=== PATIENT | female | born 1980 | race Caucasian/White ===

== ENCOUNTER 2016-10-12 23:08 | Emergency (ER) | payer OTHER ==
[~2016-10-12] VITALS: Ht 160 cm; Wt 82.2 kg
[2016-10-12 23:17] VITALS: TEMP 37.1; Ht 160 cm; Wt 82.2 kg
[2016-10-12] MEDS ORDERED: SODIUM CHLORIDE 0.9% 1000ML 1,000 ML IV STA (23:28)
[2016-10-12] MEDS ORDERED: ONDANSETRON INJ 2 MG/ML 2 ML VIAL IV STA (23:28)
[2016-10-12] MEDS ORDERED: SODIUM CHLORIDE 0.9% 1000ML 2,000 ML IV STA (23:28)
[2016-10-12] MEDS ORDERED: DICYCLOMINE HCL 10 MG/ML 2 ML AMP IM ONE (23:30)
[2016-10-13] LABS: BASO % 0.1 %; BASO ABS # 0.01 K/uL (0-0.2); COMPLETE YES; EOS % 2.5 %; IG% 0.1 %; LYMPH % 7.8 %; MEAN CELL VOLUME 87.6 fL (80-100); MEAN CORPUSCULAR HEMOGLOBIN 30.1 pg (25-34); MEAN CORPUSCULAR HGB CONC 34.4 g/dl (32-36); MEAN PLATELET VOLUME 9.8 fL (7.4-10.4); MONO % 8.7 %; NEUT % 80.8 %; PLATELET COUNT 227 K/uL (130-400); RED BLOOD COUNT 4.91 M/uL (4.2-5.4); WHITE BLOOD COUNT 7.72 K/uL (4.8-10.8)
[2016-10-13 00:19] LABS: PREG INTERNAL NEGATIVE QC NEG CLEAR BACKGROUND; PREG INTERNAL POSITIVE QC POS CONTROL LINE
[2016-10-13 00:25] LABS: CREATININE 0.83 mg/dl (0.60-1.20); POTASSIUM 3.8 mmol/L (3.5-5.1)
[2016-10-13] MEDS ORDERED: METOCLOPRAMIDE HCL INJ 5 MG/ML 2 ML VIAL IV STA (00:37)
[2016-10-13] MEDS ORDERED: FAMOTIDINE IV INJ 20 MG in DEXTROSE 5% 100ML 100 ML IV STA (00:37)
--- NOTE | 2016-10-13 01:53 | EMERGENCY ROOM VISIT NOTE ---
History First contact with patient: 23:19 Chief Complaint: FLU LIKE SX Stated Complaint: FLU History of Present Illness The patient is a 36 year old female who presents to the Emergency Room with complaints of nausea, vomiting, diarrhea for the past day. She has had recent antibiotics. No well water. Patient denies any blood or black in the vomit or stool. Patient denies chest pain, dyspnea, fever, chills, back pain, urinary symptoms. She complains of mild diffuse abdominal cramping. No localized pain. Review of Systems See HPI for pertinent positives & negatives. A total of 10 systems reviewed and were otherwise negative. Past Medical/Surgical History None Social History Smoking Status: Never Smoker Smokeless Tobacco Use: No Alcohol Use: none Drug Use: none Marital Status: Housing Status: lives with family Current/Historical Medications No Active Prescriptions or Reported Meds Allergies Coded Allergies: Penicillins (Verified Allergy, Mild, ?, 10/13/16) Physical Exam Vital Signs Date Time Temp Pulse Resp B/P Pulse Ox O2 Delivery O2 Flow Rate FiO2 10/13/16 00:55 79 18 117/67 98 Room Air 10/12/16 23:17 37.1 111 20 129/71 96 Room Air Physical Exam VITALS: Vitals are noted on the nurse's note and reviewed by myself. Vital signs mildly tachycardic. GENERAL: Pleasant female, in no acute distress, nondiaphoretic, well-developed well-nourished. SKIN: The skin was without rashes, erythema, edema, or bruising. There is no tenting of the skin. Capillary reflex less than 2 seconds. HEAD: Normocephalic atraumatic. EARS: External auditory canals clear, tympanic membranes pearly haskins without erythema or effusion bilaterally. EYES: Pupils equal round and reactive to light and accommodation. Conjunctivae without injection, sclerae without icterus. Extraocular movements intact. NOSE: Patent, turbinates without inflammation or discharge MOUTH: Mucous membranes mildly dry. Pharynx without erythema or exudate. Uvula midline. Airway patent. Tongue does not deviate. NECK: Supple without nuchal rigidity. No lymphadenopathy. No thyromegaly. Cervical spine is nontender. No JVD. HEART: Regular rate and rhythm without murmurs gallops or rubs. LUNGS: Clear to auscultation bilaterally without wheezes, rales or rhonchi. No dullness to percussion. No retractions or accessory muscle use. ABDOMEN: Positive bowel sounds x 4. Normal tympanic percussion. Soft, nontender, without masses or organomegaly. Singh sign negative. No guarding or rebound tenderness. No CVA tenderness MUSCULOSKELETAL: No muscle atrophy, erythema, or edema noted. NEURO: Patient was alert and oriented to person place and time. Normal sensation to light and sharp touch. No focal neurological deficits. Medical Decision & Procedures Laboratory Results 10/12/16 23:40 Red Blood Count 4.91, Mean Corpuscular Volume 87.6, Mean Corpuscular Hemoglobin 30.1, Mean Corpuscular Hemoglobin Concent 34.4, Mean Platelet Volume 9.8, Neutrophils (%) (Auto) 80.8, Lymphocytes (%) (Auto) 7.8, Monocytes (%) (Auto) 8.7, Eosinophils (%) (Auto) 2.5, Basophils (%) (Auto) 0.1, Neutrophils # (Auto) 6.24, Lymphocytes # (Auto) 0.60, Monocytes # (Auto) 0.67, Eosinophils # (Auto) 0.19, Basophils # (Auto) 0.01 10/12/16 23:40 Test 10/12/16 23:40 White Blood Count 7.72 K/uL (4.8-10.8) Red Blood Count 4.91 M/uL (4.2-5.4) Hemoglobin 14.8 g/dL (12.0-16.0) Hematocrit 43.0 % (37-47) Mean Corpuscular Volume 87.6 fL (80-100) Mean Corpuscular Hemoglobin 30.1 pg (25-34) Mean Corpuscular Hemoglobin Concent 34.4 g/dl (32-36) Platelet Count 227 K/uL (130-400) Mean Platelet Volume 9.8 fL (7.4-10.4) Neutrophils (%) (Auto) 80.8 % Lymphocytes (%) (Auto) 7.8 % Monocytes (%) (Auto) 8.7 % Eosinophils (%) (Auto) 2.5 % Basophils (%) (Auto) 0.1 % Neutrophils # (Auto) 6.24 K/uL (1.4-6.5) Lymphocytes # (Auto) 0.60 K/uL (1.2-3.4) Monocytes # (Auto) 0.67 K/uL (0.11-0.59) Eosinophils # (Auto) 0.19 K/uL (0-0.5) Basophils # (Auto) 0.01 K/uL (0-0.2) RDW Standard Deviation 39.9 fL (36.4-46.3) RDW Coefficient of Variation 12.5 % (11.5-14.5) Immature Granulocyte % (Auto) 0.1 % Immature Granulocyte # (Auto) 0.01 K/uL (0.00-0.02) Anion Gap 10.0 mmol/L (3-11) Est Creatinine Clear Calc Drug Dose 97.0 ml/min Estimated GFR () 106.6 Estimated GFR (Non- 92.0 BUN/Creatinine Ratio 21.0 (10-20) Calcium Level 9.0 mg/dl (8.5-10.1) Human Chorionic Gonadotropin, Qual NEG (NEG) Medications Administered Medications (Trade) Dose Ordered Sig/Thomas Route Start Time Stop Time Status Last Admin Dose Admin Sodium Chloride 2,000 ml @ 999 mls/hr Q2H1M STAT IV 10/12/16 23:28 10/13/16 01:28 DC 10/12/16 23:52 999 MLS/HR Sodium Chloride (Nss 1000ml) 1,000 ml @ 200 mls/hr Q5H STAT IV 10/12/16 23:28 10/13/16 04:27 10/12/16 23:28 200 MLS/HR Ondansetron HCl (Zofran Inj) 4 mg NOW STAT IV 10/12/16 23:28 10/12/16 23:30 DC 10/12/16 23:51 4 MG Dicyclomine HCl (Bentyl Inj) 20 mg NOW ONCE IM 10/12/16 23:30 10/12/16 23:31 DC 10/12/16 23:51 20 MG Metoclopramide HCl 10 mg 10 mg NOW STAT IV 10/13/16 00:37 10/13/16 00:38 DC 10/13/16 01:08 10 MG Famotidine/ Dextrose (Pepcid IV Inj/ D5 100ml) 102 ml @ 200 mls/hr NOW STAT IV 10/13/16 00:37 10/13/16 01:07 DC 10/13/16 01:08 200 MLS/HR ED Course Prior records/ancillary studies reviewed. Triage Nursing notes reviewed. Additional history obtained from the family. The patient's history was concerning for nausea, vomiting, diarrhea, and abdominal pain. Differential diagnosis: Etiologies such as gastroenteritis, food borne illness, infections, appendicitis , diverticulitis, inflammatory bowel disease, obstruction, GI bleed, biliary pathology, as well as others were entertained. Physical examination findings: As above. Abdominal examination revealed no tenderness. Vital signs reviewed and revealed mildly tachycardic from dehydration. ER treatment provided: IV hydration 2 L NSS. Shaista Bautista On reassessment the patient felt better. Patient was tolerating p.o. intake. Diagnostics interpretation by me: The labs revealed no worrisome leukocytosis. Mild hyperglycemia without DKA This appears to be consistent with vomiting and diarrhea. Patient felt much better to be medicated as above. She is no longer vomiting. She was advised to rest, stay well-hydrated, do clear liquid diet today and then progress as tolerated to bland diet tomorrow. She is advised to follow-up family care in a few days or here in the ER sooner for abdominal pain, fevers, worsening signs or symptoms or as needed. Patient did not have an acute abdomen on exam. She was well-appearing. By the evaluation outlined above emergent etiologies such as appendicitis, diverticulitis, obstruction, cardiac sources, mesenteric ischemia, aortic pathology, inflammatory bowel disease, renal colic, PUD, biliary pathology, UTI, as well as others were deemed relatively unlikely. The pt informed about the findings as listed above. All questions were answered and pleased with the treatment. Return instructions were outlined and the patient was discharged in stable condition. Outpatient prescription management: zofran Referral: The patient was referred to their primary care physician for follow-up in 2 to 3 days for a recheck of the current condition. Medical Decision As above Impression Primary Impression: Nausea vomiting and diarrhea Departure Information Dispostion Home / Self-Care Condition GOOD Prescriptions No Active Prescriptions or Reported Meds Referrals No Doctor, Assigned (PCP) Patient Instructions A Signature Page, My [facility] Trumpet Search Additional Instructions DO NOT drive, drink alcohol, operate machinery, or perform dangerous activities today. You were given medications in the ER that can affect your ability to safely function or operate a vehicle. Zofran(odansetron) tablets 4mg: Take one and allow it to dissolve in your mouth every four to six hours as needed for nausea or vomiting. Ibuprofen(Motrin, Advil) may be used for fever or pain. Use 600mg every six hours as needed. Take with food. Avoid using more than 2400mg in a 24 hour period. Do not use 2400mg per day for more than three consecutive days without physician direction. Prolonged inappropriate use can lead to stomach upset or ulcers. (AND/OR) Acetaminophen(Tylenol) may be used for fever or pain. Use 1000mg every six hours as needed. Avoid using more than 3000mg in a 24 hour period. Rest and drink plenty of fluids as tolerated. Slow sips of water or sports drinks are recommended instead of large amounts all at once. Continue current medications. Once your stomach is settled start with a clear liquid diet (jello, soup broth, etc.) and then advance as tolerated. You should avoid full, heavy meals for about 24 hrs from the time your symptoms resolved. Return to the ER for persistent vomiting, fevers, abdominal pain, chest pains, difficulty breathing, black or bloody stools, worsening of your condition, or as needed. Follow up with your primary physician in 2-3 days for a recheck of your current condition.
[2016-10-13] MEDS ORDERED: ONDANSETRON HOME PACK 4MG OD TAB PO ONE (02:00)
[2016-10-13 02:13] VITALS: BP 107/59; PULSE 82; O2SAT 98
== END 2016-10-13 02:14 | disposition home or self-care (01) ==
LOC: C.EDB 23:10
DX: R11.2 Nausea with vomiting, unspecified (principal); R19.7 Diarrhea, unspecified; Z88.0 Allergy status to penicillin

== ENCOUNTER 2016-12-16 19:04 | Emergency (ER) | payer OTHER ==
[~2016-12-16] VITALS: Ht 160 cm; Wt 71.0 kg
[2016-12-16 19:11] VITALS: TEMP 36.8; Ht 160 cm; Wt 71.0 kg
[2016-12-16] MEDS ORDERED: SODIUM CHLORIDE 0.9% 1000ML 1,000 ML IV STA (19:16)
[2016-12-16] MEDS ORDERED: RANITIDINE HCL 150 MG TAB PO STA (19:16)
--- NOTE | 2016-12-16 19:36 | EMERGENCY ROOM VISIT NOTE ---
History Report prepared by Carlyle: Yancy Ford Under the Supervision of: Dr. Viet Parks M.D. 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 The patient was recently prescribed Levaquin for a sinus infection. She took her first dose tonight. One hour after taking the Levaquin she started to develop symptoms of an allergic reaction. She reports swelling of her neck and lips as well as shortness breath. This is the first time that she has ever taken Levaquin. She has never had an allergic reaction like this before. She is allergic to penicillin, but just developed hives with that reaction. The patient was brought to the ED by ambulance. She was given epinephrine, Solu-Medrol, and Benadryl en route and her symptoms have improved. She is still experiencing numbness of her lips and states that her lips and neck still feel swollen. 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 Review of Systems See HPI for pertinent positives & negatives. A total of 10 systems reviewed and were otherwise negative. Past Medical & Surgical Medical Problems: (1) Allergy status to penicillin (2) Irritable bowel syndrome Family History No pertinent history stated. Social History Smoking Status: Never Smoker Alcohol Use: none Drug Use: none Marital Status: Housing Status: lives with family Current/Historical Medications Scheduled Epinephrine (Epipen), 0.3 MG IM UD Ranitidine Hcl (Zantac), 150 MG PO BID Allergies Coded Allergies: Levofloxacin (Unverified Allergy, Severe, "couldn't breathe, itchy,sick in the stomach", 12/16/16) Penicillins (Verified Allergy, Mild, ?, 12/16/16) Physical Exam Vital Signs Date Time Temp Pulse Resp B/P Pulse Ox O2 Delivery O2 Flow Rate FiO2 12/16/16 23:48 97 18 131/83 96 Room Air 3/15/17 23:11 105 12/16/16 22:13 114 18 129/75 100 Room Air 12/16/16 20:27 105 18 98 Room Air 12/16/16 19:26 118 12/16/16 19:11 98 Room Air 12/16/16 19:11 36.8 126 18 150/93 100 Room Air Physical Exam GENERAL: Patient is a healthy-appearing well-nourished 36 year old female. HEAD: Normocephalic atraumatic EYES: Ocular movements intact pupils equal and react to light OROPHARYNX mucous membranes are moist no exudates present no erythema or edema present NECK: Supple no nuchal rigidity, no stridor. CHEST: Good equal expansion LUNGS: Clear and equal to auscultation, no wheezing. CARDIAC: Normal S1 and S2 ABDOMEN: Soft nontender no guarding BACK: No CVA tenderness EXTREMITIES: No pain upon palpation normal muscle strength in all groups no clubbing cyanosis or edema INTEGUMENTARY: No rashes. NEURO: Patient is following commands is answering questions appropriately. Alert and oriented x3 Cranial Nerves 2-12 grossly intact Medical Decision & Procedures Medications Administered Medications (Trade) Dose Ordered Sig/Thomas Route Start Time Stop Time Status Last Admin Dose Admin Sodium Chloride (Nss 1000ml) 1,000 ml @ 999 mls/hr Q1H1M STAT IV 12/16/16 19:16 12/16/16 20:16 DC 12/16/16 19:27 999 MLS/HR Ranitidine HCl (zANTac TAB) 150 mg NOW STAT PO 12/16/16 19:16 12/16/16 19:18 DC 12/16/16 19:27 150 MG Dexamethasone Sodium Phosphate (Decadron Inj) 10 mg NOW ONCE IV 12/16/16 20:30 12/16/16 20:31 DC 12/16/16 20:23 10 MG Diphenhydramine HCl (Benadryl Inj) 25 mg NOW STAT IV 12/16/16 20:16 12/16/16 20:17 DC 12/16/16 20:23 25 MG Racepinephrine (Raccemic Epinephrine 2.25% 0.5ML Neb) 0.5 ml NOW STAT INH 12/16/16 20:18 12/16/16 20:19 DC 12/16/16 20:27 0.5 ML Sodium Chloride (Benzie Nasal Clyde) 2 sprays NOW ONCE NA 12/16/16 23:45 12/16/16 23:46 DC 12/16/16 23:45 2 SPRAYS ED Course 1910: Past medical records reviewed. The patient was evaluated in room B4A. A complete history and physical examination was performed. 1915: Zantac 150 mg PO, NSS 1000 ml @ 999 mls/hr IV 1922: I reassessed the patient and she is doing well. 2014: The patient states that she feels like her throat is swelling again. 2016: Benadryl 25 mg IV 2018: Racepinephrine 0.5 ml INH 2030: Decadron 10 mg IV 0: The patient is resting comfortably at this time. 4: I reassessed the patient at this time. She is feeling better and resting comfortably. I discussed the results and treatment plan with the patient. I answered all pertaining questions that she had. She expressed understanding and verbalized agreement. The patient will be discharged home. 5: Benzie Nasal Clyde 2 sprays NA Medical Decision Differential diagnosis: Etiologies such as allergic reaction, anaphylaxis, urticaria, Juan-Jerry syndrome, toxic epidermal necrolysis, erythema multiforme, cellulitis, as well as others were entertained. This is a 36-year-old female who presents emergency department complaining of allergic reaction. Upon arrival to emergency department the patient is complaining of numbness to her upper left. She was given Solu-Medrol normal saline and Benadryl by EMS along with epinephrine. She is shaking from the epinephrine. She was observed for a total of 4 hours in the emergency department she was given an additional dose of Decadron as well as Benadryl. I do believe that the patient as well as to be discharged home however I will write for EpiPen. I cautioned patient not to use anymore Levaquin and will hold off on prescribing her another antibiotic until she follows up with ear nose and throat. She was already prescribed prednisone earlier today I will continue her on Zantac and Benadryl and wrote for EpiPen's. Patient was in agreement with the treatment plan. Impression Primary Impression: Allergic reaction Scribe Attestation The scribe's documentation has been prepared under my direction and personally reviewed by me in its entirety. I confirm that the note above accurately reflects all work, treatment, procedures, and medical decision making performed by me. Departure Information Dispostion Home / Self-Care Prescriptions Ranitidine Hcl (ZANTAC) 150 Mg Tab 150 MG PO BID for 7 Days, #14 TAB Prov: Viet Parks MD 12/16/16 Epinephrine (EPIPEN) 0.3 Mg/0.3 Ml Inj 0.3 MG IM UD, #2 BOX Prov: Viet Parks MD 12/16/16 Referrals No Doctor, Assigned (PCP) Forms HOME CARE DOCUMENTATION FORM, IMPORTANT VISIT INFORMATION, School Instructions, Work Instructions Patient Instructions ED Allergic Reaction General Other, My [facility], Sinusitis Acute, Sinusitis Causes, Sinusitis Prevent, Sinusitis Self Care Additional Instructions Continue prednisone Rx Follow up with DR Lozano's office for sinusitis Take 50 mg Benadryl every 6 hours You have been examined and treated today on an emergency basis only. This is not a substitute for, or an effort to provide, complete comprehensive medical care. It is impossible to recognize and treat all injuries or illnesses in a single emergency department visit. It is therefore important that you follow up closely with your PCP. Call as soon as possible for an appointment. Thank you for your time and consideration. I look forward to speaking with you again soon. Please don't hesitate to call us if you have any questions. Problem Qualifiers Primary Impression: Allergic reaction Encounter type: initial encounter Qualified Codes: T78.40XA - Allergy, unspecified, initial encounter
[2016-12-16] MEDS ORDERED: DiphenhydrAMINE HCL 50 MG/ML VIAL IV STA (20:16)
[2016-12-16] MEDS: RACEPINEPHRINE 2.25% NEBU SOLN 0.5 ML VIAL INH STA ×2 (20:18→20:27)
[2016-12-16 20:27] VITALS: PULSE 105; O2SAT 98
[2016-12-16] MEDS ORDERED: DEXAMETHASONE SOD INJ 10 MG/ML VIAL IV ONE (20:30)
[2016-12-16] MEDS ORDERED: EPP3/2 IM (23:37)
[2016-12-16] MEDS ORDERED: RANI150T3 PO (23:38)
[2016-12-16] MEDS ORDERED: SODIUM CHLORIDE 0.65% NA SOLN 45 ML (OCEAN) ONE (23:45)
[2016-12-16 23:48] VITALS: BP 131/83; PULSE 97; O2SAT 96
== END 2016-12-17 00:08 | disposition home or self-care (01) ==
LOC: EDBD 19:04 → C.EDB 19:06
DX: T78.40XA Allergy, unspecified, initial encounter (principal); X58.XXXA Exposure to other specified factors, initial encounter

== ENCOUNTER → 2017-08-17 | Outpatient (CLI) | payer OTHER ==
[~2017-08-17] MED LIST: EPP3/2 IM
[2017-08-18 12:23] LABS: URINE APPEARANCE CLOUDY (CLEAR); URINE BILIRUBIN NEG (NEG); URINE COLOR YELLOW; URINE NITRITE NEG (NEG); URINE PH 5.5 (4.5-7.5); URINE SPECIFIC GRAVITY 1.026 (1.000-1.030); UROBILINOGEN NEG (NEG)
[2017-08-18 12:39] LABS: MANUAL MICROSCOPIC REQUIRED? NO; REVIEW REQ? NO
== END | disposition home or self-care (01) ==
LOC: C.LABSPEC 11:07
PROVIDERS: ATTEND Neuromusculoskeletal Medicine & OMM
DX: R30.0 Dysuria (principal)

== ENCOUNTER → 2017-08-25 | Outpatient (CLI) | payer OTHER | END | disposition home or self-care (01) | LOC: C.LABSPEC 16:25 | PROVIDERS: ATTEND Physician Assistant | DX: N94.9 Unspecified condition associated with female genital organs and menstrual cycle (principal) ==

== ENCOUNTER → 2017-10-12 | Outpatient (CLI) | payer OTHER | END | disposition home or self-care (01) | LOC: C.LABSPEC 10:54 | PROVIDERS: ATTEND Urology | DX: R30.0 Dysuria (principal); R31.9 Hematuria, unspecified ==

== ENCOUNTER → 2017-10-14 | Outpatient (CLI) | payer OTHER ==
[2017-10-14 17:29] LABS: ALBUMIN 3.9 gm/dl (3.4-5.0); ALT/SGPT 29 U/L (12-78); AST/SGOT 14 U/L (15-37); BLOOD UREA NITROGEN 14 mg/dl (7-18); CALCIUM 9.1 mg/dl (8.5-10.1); CARBON DIOXIDE 27 mmol/L (21-32); CREATININE 0.78 mg/dl (0.60-1.20); GLUCOSE 89 mg/dl (70-99); SODIUM 136 mmol/L (136-145)
[2017-10-14 17:32] LABS: ALKALINE PHOSPHATASE 52 U/L (45-117); TOTAL PROTEIN 8.1 gm/dl (6.4-8.2)
== END | disposition home or self-care (01) ==
LOC: C.LABBC 13:01
PROVIDERS: ATTEND Urology
DX: R31.9 Hematuria, unspecified (principal); R30.0 Dysuria